=== PATIENT | female | born 1950 | race Caucasian/White ===

== ENCOUNTER 2017-06-29 07:55 | Day surgery (SDC) | payer OTHER ==
[~2017-06-29] VITALS: Ht 162.6 cm; Wt 72.6 kg
[2017-06-29] MEDS ORDERED: fentaNYL 0.05 MG/ML VIAL ONE (11:59)
[2017-06-29] MEDS ORDERED: MEPERIDINE 50 MG/ML SYR ONE (11:59)
[2017-06-29] MEDS ORDERED: MIDAZOLAM 2 MG/2 ML VIAL ONE (11:59)
[2017-06-29] MEDS ORDERED: GLYCOPYRROLATE 0.2 MG/ML VIAL ONE (12:01)
[2017-06-29] MEDS ORDERED: KETOROLAC 60 MG/2 ML VIAL IM ONE (12:01)
[2017-06-29] MEDS ORDERED: ONDANSETRON 4 MG/2 ML VIAL ONE (12:01)
[2017-06-29] MEDS ORDERED: ROCURONIUM 50 MG/5 ML VIAL IV ONE (12:01)
[2017-06-29] MEDS ORDERED: NEOSTIGMINE 1:1000 10 MG/10 ML VIAL ONE (12:01)
[2017-06-29] MEDS ORDERED: SUCCINYLCHOLINE CHLORIDE 200 MG/10 ML VIAL IVP ONE (12:01)
[2017-06-29] MEDS ORDERED: DESFLURANE 240 ML BTL INH ONE (12:01)
[2017-06-29] MEDS ORDERED: PROPOFOL 200 MG/20 ML VIAL IV ONE (12:01)
[2017-06-29] MEDS ORDERED: DEXAMETHASONE 4 MG/ML VIAL ONE (12:01)
[2017-06-29] MEDS ORDERED: MIDAZOLAM 2 MG/2 ML VIAL IVP ONE (13:10)
[2017-06-29] MEDS ORDERED: MEPERIDINE 25 MG/ML SYR IVP PRN ×2 (13:10)
[2017-06-29] MEDS ORDERED: METOCLOPRAMIDE 10 MG/2 ML INJ VIAL IVP PRN (13:10)
[2017-06-29] MEDS ORDERED: NACL 0.9% 1,000 ML IV SCH (13:46)
[2017-06-29] MEDS ORDERED: HYDROmorphone 1 MG/ML AMP IVP PRN (13:50)
[2017-06-29] MEDS ORDERED: HYDROcodone/APAP 5/325 MG 1 TAB TAB PO PRN (13:50)
[2017-06-29] MEDS ORDERED: ONDANSETRON 4 MG/2 ML VIAL IV PRN (13:50)
[2017-06-29] MEDS ORDERED: MORPHINE SULFATE 4 MG/ML SYR IV PRN (13:50)
[2017-06-29] MEDS: BUPIVACAINE-MPF 0.25% 30 ML VIAL INJ ONE (13:55)
[2017-06-29 14:40] VITALS: BP 143/69
--- NOTE | 2017-06-29 14:40 | NUR ---
PT TO ROOM 104B FROM PACU, REPORT RECEIVED FROM RN AMOL, PT APPEARS SLEEPY BUT AWAKE, RESP EVEN UNLABORED, VITALS STABLE, O2SAT 88% RA, O2 STARTED AT 2L NC, PT ORIENTED TO ROOM AND FLOOR, CALL LEO WITHIN REACH, SIDE RAILS UP X2, BED LOCKED IN LOW POSITION, DAUGHTER BETTY CALLED, SHE WILL BE HERE IN A FEW MINUTES.
[2017-06-29 14:55] VITALS: BP 146/68
[2017-06-29] MEDS: MORPHINE SULFATE 2 MG/ML SYR IVP PRN (15:01)
[2017-06-29 15:10] VITALS: BP 144/62
[2017-06-29 16:10] VITALS: BP 145/66
--- NOTE | 2017-06-29 16:20 | NUR ---
PT UP OUT OF BED WITH MINIMAL ASSIST, AMBULATED SLOWLY TO BATHROOM, VOIDED WITHOUT PROBLEM, WILL PREPARE PT FOR DC HOME.
--- NOTE | 2017-06-29 17:10 | NUR ---
DC INSTRUCTION AND RX GIVEN AND EXPLAINED TO PT AND FAMILY, ALL QUESTIONS ASKED AND ANSWERED, NAEEM KELSY NOW WITH FAMILY, PT ESCORTED IN WHEELCHAIR TO FRONT LOBBY.
== END 2017-06-29 17:10 | disposition home or self-care (01) ==
LOC: MDS 07:55 → MMU 07:56 → MTU 14:59 → MDS 17:10
PROVIDERS: ATTEND Surgery
DX: K80.10 Calculus of gallbladder with chronic cholecystitis without obstruction (principal); K21.9 Gastro-esophageal reflux disease without esophagitis; E78.5 Hyperlipidemia, unspecified
CPT/HCPCS: 36415; 47562; 71045; 82374; 86886; 86900; 86901; 93005; J0330; J0690; J1100; J1885; J2175; J2250; J2270; J2405; J2704; J2710; J3010; J3490; J7030; J7060